=== PATIENT | male | born 1980 | race Two or more races ===

== ENCOUNTER 2017-01-15 20:38 | Emergency (ER) | payer OTHER ==
--- NOTE | ~2017-01-15 | CR63 ---
[facility] A Service of [facility] & [facility] RADIOLOGY TEXT RESULTS PATIENT: ROBBIE WEBB LOCATION: [facility] : [birth year] UNIT #: [id number] AGE: [address]: Ho Chun MD SEX: M ORDER DR: [id number] [facility] [address] [place], [place] [address] [id number] E MR#: [id number] Acc #: [id number] NAME: ROBBIE WEBB : 1980 SEX: M STUDY DATE/TIME: 01/15/2017 23:14 UNIT: [facility] ROOM: STUDY DESCRIPTION: CR Chest 2 View Attending Physician: Ho Chun M.D. Ordering Physician: Ho Chun M.D. Primary Care Physician: Primary Care Physician No MEDICAL IMAGING REPORT This report is preliminary unless electronic signature is present EXAM PA and lateral chest INDICATION Chest pain x2 days with comparison to earlier the same day. FINDINGS A PA and lateral view of the chest were obtained. Heart size and vascularity are normal, lungs are clear and the bones are normal. IMPRESSION No active disease. Dictated by... Gigi Morales M.D. THIS IS AN ELECTRONICALLY VERIFIED REPORT Gigi Morales M.D. at 01/16/2017 5:56 AM RUTH/grupo TD: 01/16/2017 00:55 JOB #: [id number] MEDICAL IMAGING REPORT Page 1 of 1 COPY
--- NOTE | ~2017-01-15 | CR72 ---
[facility] A Service of [facility] & [facility] RADIOLOGY TEXT RESULTS PATIENT: ROBBIE WEBB LOCATION: [facility] : 84 UNIT #: [id number] AGE: [address]: Ho Chun MD SEX: M ORDER DR: [id number] [facility] [address] [place], [place] [address] [id number] P MR#: [id number] Acc #: [id number] NAME: ROBBIE WEBB : 1980 SEX: M STUDY DATE/TIME: 01/15/2017 21:38 UNIT: [facility] ROOM: STUDY DESCRIPTION: CR Chest Single View Portable Ordering Physician: Ed Doc Jazzmine Billy Primary Care Physician: No Primary Care Physician MEDICAL IMAGING REPORT This report is preliminary unless electronic signature is present EXAM Single view chest. INDICATIONS Chest pain for 2 days. FINDINGS Single portable AP view chest without comparison. Heart and mediastinal contours are within normal. Lung volumes are low. Crowding of the pulmonary interstitium may represent a typical infection or interstitial edema, however, this could be artifact due to the poor technique or inspiratory effort. No pneumothorax or pleural effusion. IMPRESSION 1. Low lung volumes. 2. There is crowding of the pulmonary interstitium. This could be artifact due to low lung volumes, however, atypical infection or interstitial edema should be considered. A PA and lateral view may be useful to clarify. Dictated by... Anthony Guillen M.D. THIS IS AN ELECTRONICALLY VERIFIED REPORT Anthony Guillen M.D. at 01/16/2017 1:19 PM EMANUEL/marisela TD: 01/15/2017 22:22 JOB #: [id number] MEDICAL IMAGING REPORT Page 1 of 1 COPY
--- NOTE | ~2017-01-15 | EKG ---
PATIENT: ROBBIE WEBB UNIT #: [id number] Ventricular Rate: 78 BPM Atrial Rate: 78 BPM P-R Interval: 164 ms QRS Duration: 90 ms Q-T Interval: 370 ms QTC Calculation(Bezet): 421 ms P [place]: 60 degrees Calculated R [place]: 10 degrees Calculated T [place]: 38 degrees Diagnosis Line: Normal sinus rhythm Diagnosis Line: Possible Left atrial enlargement Diagnosis Line: Nonspecific ST abnormality Diagnosis Line: Abnormal ECG Diagnosis Line: No previous ECGs available Diagnosis Line: Confirmed by HALLEY BAILEY MD ([id number]) on Diagnosis Line: 01/17/2017 3:45:43 PM INTERPRETING MD: CELSO
[2017-01-15 23:19] LABS: BASOPHIL# 0.1 X10e3 (0-0.3); BASOPHIL% 0.7 % (0-2.5); DIFF IND YES; EOSINOPHIL# 0.3 X10e3 (0-0.7); EOSINOPHIL% 3.2 % (0.0-7.0); LYMPHOCYTE% 38.2 % (17.0-45.0); MEAN CELL VOLUME 62.7 FL (83-96); MEAN CORPUSCULAR HEMOGLOBIN 19.5 PG (28-34); MEAN PLATELET VOLUME 10.2 FL (6.5-11.5); MONOCYTE# 0.7 X10e3 (0-1.0); MONOCYTE% 6.8 % (3.0-12.0); NEUTROPHIL# 5.4 X10e3 (1.5-7.1); NEUTROPHIL% 51.1 % (40-75); PLATELET COUNT 206 X10e3 (140-420); RED CELL DISTRIBUTION WIDTH 15.6 % (11.0-15.5); WHITE BLOOD COUNT 10.5 X10e3 (4.0-10.5)
[2017-01-15 23:25] LABS: POC - CKMB <1.0 ng/mL (0.0-7.9); POC - TROPONIN <0.05 ng/mL (<=0.05)
[2017-01-15 23:44] LABS: ANISOCYTOSIS SL; NUCLEATED RED BLOOD CELL 1 /100 (0); PLATELET ESTIMATE DECREASED (NORMAL)
[2017-01-15 23:47] LABS: ALBUMIN SERUM 4.3 g/dL (3.5-5.0); BILIRUBIN, DIRECT 0.1 mg/dL (0.0-0.2); BILIRUBIN,INDIRECT 0.6 mg/dL (0.0-0.9); BILIRUBIN,TOTAL 0.7 mg/dL (0.2-2.0); CALCIUM SERUM 9.1 mg/dL (8.4-10.2); CREATININE SERUM 0.7 mg/dL (0.6-1.4); GLOM FILT RATE Estimated 123.2 mL/min (>60); POTASSIUM 3.7 mmol/L (3.5-5.1); PROTEIN TOTAL SERUM 7.1 g/dL (6.0-8.3)
[2017-01-16 01:11] LABS: POC - CKMB <1.0 ng/mL (0.0-7.9); POC - TROPONIN <0.05 ng/mL (<=0.05)
== END 2017-01-16 01:30 | disposition home or self-care (01) ==
LOC: CED 20:38
PROVIDERS: Emergency Medicine
DX: R07.89 Other chest pain (principal); F17.200 Nicotine dependence, unspecified, uncomplicated
CPT/HCPCS: 36415; 71010; 71020; 80048; 80076; 82553; 84484; 85025; 93005; 99285; J1885